=== PATIENT | male | born 1965 | race Caucasian/White ===

== ENCOUNTER 2017-05-19 00:15 | Emergency (ER) | payer SELFPAY ==
[~2017-05-19] VITALS: Ht 172.7 cm; Wt 84.4 kg
[2017-05-19 00:23] VITALS: BP 144/80; PULSE 83; RESP 18; TEMP 98.6; O2SAT 97
[2017-05-19 04:13] VITALS: BP 137/80; PULSE 71; RESP 18; TEMP 98.6; O2SAT 97
[2017-05-19 04:15] VITALS: BP 137/80; PULSE 71; RESP 18; TEMP 98.6; O2SAT 97
--- NOTE | 2017-05-19 04:27 | PD ---
HPI Chief Complaint: Oral / Dental Pain or Problem Time Seen by Provider: 04:20 Travel History International Travel<30 days: No Contact w/Intl Traveler<30days: No Traveled to known affect area: No History of Present Illness HPI 52-year-old male presents to the emergency department for complaint of 1 day of a piece of broken tooth broke off completely leaving the base and roots of the dentition and place. Patient had no symptoms subsequently until Tuesday morning developed severe pain in the jaw at the site of the avulsed tooth. Patient states over the day he has noticed increasing swelling and pain. No report of fever or chills. No report of nausea or vomiting. Patient is not diabetic by history. Patient has no known allergies. Patient rates dental pain 10/10 intensity. Patient has no difficulty speaking or swallowing or opening his mouth. No neck pain. No history of heart murmur. PFSH Past Medical History Narrative Medical Negative past medical history negative surgical history positive alcohol use and tobacco use; nursing notes reviewed Medical History: Denies Significant Hx Diminished Hearing: No Tetanus Vaccination: Unknown Influenza Vaccination: No Past Surgical History Surgical History: No Previous Surgery Social History Alcohol Use: Yes Tobacco Use: Yes Substance Use: No Allergies-Medications (Allergen,Severity, Reaction): Coded Allergies: No Known Allergies (Verified Allergy, Unknown, 05/19/17) Reported Meds & Prescriptions Reported Meds & Active Scripts Active Tramadol (Tramadol HCl) 50 Mg Tab 50 Mg PO Q6H PRN Clindamycin (Clindamycin HCl) 150 Mg Cap 300 Mg PO Q6H 7 Days Review of Systems Except as stated in HPI: all other systems reviewed are Neg General / Constitutional: No: Fever, Chills HENT: Positive: Dental Difficulties, No: Congestion, Gingival Bleeding Cardiovascular: No: Chest Pain or Discomfort Respiratory: No: Shortness of Breath Gastrointestinal: No: Abdominal Pain Genitourinary: No: Flank Pain Musculoskeletal: No: Myalgias, Arthralgias Skin: No Rash Neurologic: No: Weakness Psychiatric: No: Anxiety Hematologic/Lymphatic: No: Lymph Node Enlargement Physical Exam Narrative GENERAL: Well-developed well-nourished male no acute distress or respiratory distress; triage vital signs found to be in normal range SKIN: Warm and dry. HEAD: Normocephalic. EYES: No scleral icterus. No injection or drainage. ENT: Patient has mild soft tissue swelling to the right lower face above the mandible; no trismus; lower dentition remarkable for avulsed # 29 dentition with gingival soft tissue swelling tenderness and fluctuance. No submandibular mass tenderness or fluctuance. Tongue is midline without sublingual soft tissue swelling. Airway is patent. NECK: Supple, trachea midline. No JVD or lymphadenopathy. CARDIOVASCULAR: Regular rate and rhythm without murmurs, gallops, or rubs. RESPIRATORY: Breath sounds equal bilaterally. No accessory muscle use. GASTROINTESTINAL: Abdomen soft, non-tender, nondistended. MUSCULOSKELETAL: No cyanosis, or edema. BACK: Nontender without obvious deformity. No CVA tenderness. Data Data Last Documented VS Vital Signs Date Time Temp Pulse Resp B/P (MAP) Pulse Ox O2 Delivery O2 Flow Rate FiO2 05/19/17 04:15 71 18 05/19/17 04:15 98.6 137/80 (99) 97 Room Air Orders Orders Basic Metabolic Panel (Bmp) (05/19/17 04:20) Complete Blood Count With Diff (05/19/17 04:20) Iv Access Insert/Monitor (05/19/17 04:20) Clindamycin Inj (Cleocin Inj) (05/19/17 04:30) Sodium Chloride 0.9% Flush (Ns Flush) (05/19/17 04:30) Ketorolac Inj (Toradol Inj) (05/19/17 04:30) Ondansetron Inj (Zofran Inj) (05/19/17 04:30) Morphine Inj (Morphine Inj) (05/19/17 05:30) Ed Discharge Order (05/19/17 05:25) Labs Laboratory Tests Test 05/19/17 04:35 White Blood Count 8.1 TH/MM3 Red Blood Count 4.77 MIL/MM3 Hemoglobin 14.8 GM/DL Hematocrit 44.6 % Mean Corpuscular Volume 93.6 FL Mean Corpuscular Hemoglobin 31.0 PG Mean Corpuscular Hemoglobin Concent 33.1 % Red Cell Distribution Width 12.7 % Platelet Count 174 TH/MM3 Mean Platelet Volume 9.3 FL Neutrophils (%) (Auto) 63.0 % Lymphocytes (%) (Auto) 20.7 % Monocytes (%) (Auto) 14.0 % Eosinophils (%) (Auto) 1.4 % Basophils (%) (Auto) 0.9 % Neutrophils # (Auto) 5.1 TH/MM3 Lymphocytes # (Auto) 1.7 TH/MM3 Monocytes # (Auto) 1.1 TH/MM3 Eosinophils # (Auto) 0.1 TH/MM3 Basophils # (Auto) 0.1 TH/MM3 CBC Comment DIFF FINAL Differential Comment Blood Urea Nitrogen 11 MG/DL Creatinine 0.69 MG/DL Random Glucose 107 MG/DL Calcium Level 8.4 MG/DL Sodium Level 136 MEQ/L Potassium Level 3.8 MEQ/L Chloride Level 103 MEQ/L Carbon Dioxide Level 27.7 MEQ/L Anion Gap 5 MEQ/L Estimat Glomerular Filtration Rate 121 ML/MIN MDM Medical Decision Making Medical Screen Exam Complete: Yes Emergency Medical Condition: Yes Medical Record Reviewed: Yes Interpretation(s) CBC & BMP Diagram 05/19/17 04:35 Calcium Level 8.4 L Vital Signs Date Time Temp Pulse Resp B/P (MAP) Pulse Ox O2 Delivery O2 Flow Rate FiO2 05/19/17 04:15 71 18 05/19/17 04:15 98.6 71 18 137/80 (99) 97 Room Air 05/19/17 04:13 98.6 71 18 137/80 (99) 97 05/19/17 00:23 98.6 83 18 144/80 (101) 97 Differential Diagnosis Dental pain, avulsed dentition, dental caries with extensive dental decay, dental abscess, apical abscess, gingival abscess Narrative Course IV access obtained specimens collected and sent for resulting patient administered clindamycin 900 mg IV piggyback along with Toradol 30 mg IV and Zofran 4 mg IV After risk and benefit discussed with the patient using an 11 blade an incision was made at the area of gingival fluctuance with large amount of purulent drainage; ice water swish and spit and suction was used to remove purulent drainage. Patient tolerated well with decreased soft tissue swelling. Patient administered pain medication morphine sulfate 3 mg IV. Patient provided prescription for clindamycin and tramadol. Patient again encouraged to follow- up with dentist and encouraged to call dental office in a.m. to schedule follow- up appointment. Patient was encouraged to use ibuprofen as needed for pain associated inflammation and acetaminophen as needed for fever. Patient encouraged to return to the emergency department department for any recurrent soft tissue swelling. Procedures Procedure Narrative After the risks and benefits were discussed the following procedure was performed: INCISION AND DRAINAGE OF ABSCESS: The area was prepped and was sterilely draped. A number 11 scalpel was used to make a 1/2 -cm incision across the area of the abscess. The abscess was drained and irrigated with normal saline/ ice water. Diagnosis Primary Impression: Dental abscess Referrals: Dentist 2 days Additional Instructions: Complete course of antibiotic as prescribed Take ibuprofen/Motrin/Advil 800 mg as often as every 8 hours as needed for pain Associates inflammation for fever 100.4F or greater Take acetaminophen/Tylenol every 4 hours as needed for fever 100.4F or greater Take tramadol as prescribed as needed for pain greater than 5/10 intensity Follow-up with dentist as will need dental extraction of retained tooth fragment Return to the emergency department for any concerns or change in condition; fever pain bleeding or any concerns May apply warm compresses for comfort Use warm salt water to swish and spit Med/Other Pt SpecificInfo: Prescription(s) given Scripts Tramadol (Tramadol) 50 Mg Tab 50 MG PO Q6H Y for PAIN, #5 TAB 0 Refills Prov: Yun Lamar MD 05/19/17 Clindamycin (Clindamycin) 150 Mg Cap 300 MG PO Q6H for Infection for 7 Days, #56 CAP 0 Refills Prov: Yun Lamar MD 05/19/17 Disposition: 01 DISCHARGE HOME Condition: Stable Yun Lamar MD May 19, 2017 04:27
[2017-05-19] MEDS ORDERED: KETOROLAC TROMETHAMINE 30 MG/ML (IVP) VIAL IV PUSH ONE (04:30)
[2017-05-19] MEDS ORDERED: ONDANSETRON HCL 4 MG/2 ML VIAL IV PUSH ONE (04:30)
[2017-05-19] MEDS ORDERED: SODIUM CHLORIDE 0.9% FLUSH 10 ML FLUSH IVF PRN (04:30)
[2017-05-19] MEDS ORDERED: CLINDAMYCIN INJ 900 MG in SODIUM CHLORIDE 0.9% INJ 100 ML IV ONE (04:30)
[2017-05-19 04:44] LABS: AUTOMATED NEUTROPHIL # 5.1 TH/MM3 (1.8-7.7); BASOPHIL # 0.1 TH/MM3 (0-0.2); BASOPHIL % 0.9 % (0.0-2.0); EOSINOPHIL # 0.1 TH/MM3 (0-0.4); EOSINOPHIL % 1.4 % (0.0-4.0); HEMATOCRIT 44.6 % (39.0-51.0); HEMOGLOBIN 14.8 GM/DL (13.0-17.0); LYMPH % 20.7 % (9.0-44.0); LYMPHOCYTE # 1.7 TH/MM3 (1.0-4.8); MEAN CELL VOLUME 93.6 FL (80.0-100.0); MEAN CORPUSCULAR HGB CONC 33.1 % (32.0-36.0); MEAN PLATELET VOLUME 9.3 FL (7.0-11.0); MONOCYTE # 1.1 TH/MM3 (0-0.9); PLATELET COUNT 174 TH/MM3 (150-450); RED BLOOD COUNT 4.77 MIL/MM3 (4.50-5.90); RED CELL DISTRIBUTION WIDTH 12.7 % (11.6-17.2); WHITE BLOOD COUNT 8.1 TH/MM3 (4.0-11.0)
[2017-05-19 04:55] LABS: CALCIUM 8.4 MG/DL (8.5-10.1)
[2017-05-19 04:56] LABS: BICARBONATE 27.7 MEQ/L (21.0-32.0)
[2017-05-19 04:59] LABS: CREATININE 0.69 MG/DL (0.60-1.30)
[2017-05-19] MEDS ORDERED: TRAM50TA PO (05:05)
[2017-05-19] MEDS ORDERED: CLIN150C14 PO (05:05)
[2017-05-19] MEDS ORDERED: MORPHINE SULFATE 2 MG/ML INJ IV PUSH ONE (05:30)
[2017-05-19 06:01] VITALS: BP 136/82; PULSE 74; RESP 18; O2SAT 97
== END 2017-05-19 06:11 | disposition home or self-care (01) ==
LOC: PHED 00:15
DX: K04.7 Periapical abscess without sinus (principal); K08.89 Other specified disorders of teeth and supporting structures; Z72.0 Tobacco use
CPT/HCPCS: 41800; 80048; 85025; 96365; 96375; 99284; J1885; J2270; J2405